=== PATIENT | male | born 1950 | race Caucasian/White ===

== ENCOUNTER → 2017-06-30 13:54 | Outpatient (CLI) | payer MEDICARE, BC | END | disposition home or self-care (01) | LOC: D.RAD 13:54 | DX: M25.562 Pain in left knee (principal) ==

== ENCOUNTER → 2018-10-10 12:06 | Outpatient (CLI) | payer MEDICARE, OTHER | END | disposition home or self-care (01) | LOC: D.CT 12:06 | DX: R10.11 Right upper quadrant pain (principal) ==